=== PATIENT | male | born 1940 | race Caucasian/White ===

== ENCOUNTER 2021-05-08 11:56 | Emergency (ER) | payer MEDICARE, BC ==
[~2021-05-08] VITALS: Ht 162.6 cm; Wt 59.0 kg
--- NOTE | 2021-05-08 12:05 | PHYS DOC ---
Past Medical History Past Medical History: Diabetes-Type II, Heart Disease, [place], Renal Failure (esrd m/w/f) General Adult HPI: HPI: Patient is a 80-year-old male presenting via EMS for fall and neuro deficit. Majority of history is obtained from EMS crew. Last known normal was yesterday evening. Patient who is ESRD attended dialysis this morning at 0500 hrs. as scheduled and had a full session without issues. He went home afterwards and it is unclear what occurred. Patient had an unwitnessed fall and was down for an unknown amount of time, subsequently got up and got the strength to walk out and alert neighbors who subsequently called EMS. On arrival, patient was found to have a laceration that was actively bleeding on posterior occiput, he admits he is on a blood thinner but does not know what type. Per neighbors, he also was exhibiting right lower facial droop which is abnormal for patient. Vitals were normal, hemostatic gauze placed to posterior occiput and patient transported to our facility for evaluation Son later arrived to ER and helped provide history. He was said neighbor and EMS report. Reports he visually last saw patient last night. States he heard from his father that he got home from hemodialysis and states "I think he must of gone upstairs to take his shirt off for something and fell but I am not sure". States his father ambulated to his back door as they are neighbors where her son found patient bloody with obvious facial droop prompting him to call EMS. Son confirms history of type 2 diabetes and end-stage renal disease with hemodialysis Saturday. Confirms patient takes Plavix only for prior TN with unknown amount of cardiac stents, no other anticoagulants. He received x2 COVID-19 vaccinations Review of Systems: Review of Systems: Fourteen body systems of review of systems have been reviewed. See HPI for pertinent positives and negative responses, other maxwell all other systems are negative, non-pertinent or non-contributory Heart Score: C/O Chest Pain: No HEART Score for Chest Pain: HEART Score for Chest Pain Response (Comments) Value History Moderately Suspicious 1 ECG Normal 0 Age > 65 2 Risk Factors >3 Risk Factors or Hx CAD 2 Troponin < Normal Limit 0 Total 5 Risk Factors: Risk Factors: DM, Current or recent (<one month) smoker, HTN, HLP, family history of CAD, obesity. Risk Scores: Score 0 - 3: 2.5% MACE over next 6 weeks - Discharge Home Score 4 - 6: 20.3% MACE over next 6 weeks - Admit for Clinical Observation Score 7 - 10: 72.7% MACE over next 6 weeks - Early Invasive Strategies Physical Exam: PE: Constitutional: Pt is oriented to person, place, and time. Pt appears age-appropriate. Appears to be in no acute distress HEENT: Head: Normocephalic and atraumatic. TMs clear, no hemotympanum Conjunctivae and EOM are normal. Pupils are constricted but equal, round, and reactive to light. Oropharynx is clear and moist. 3.5 inch laceration to right posterior occiput with significant hematoma and blood clot overlying region with minimal ongoing blood loss OP clear, no blood, no malocclusion, dentition intact Nares clear, no nasal septal hematoma Midface stable Neck: C-spine midline nontender, no step-offs Cardiovascular: Normal rate, regular rhythm and normal heart sounds. Pulmonary/Chest: Effort normal with crackles in bilateral lower lobes. No respiratory distress. No wheezes. CTA bilaterally Abdominal: Soft. Bowel sounds are normal. Pt exhibits no distension. There is no tenderness. Unremarkable WILBERTO Musculoskeletal: No bony tenderness to extremities, no deformities, full ROM extremities Chest wall stable Pelvis stable and non-tender No vertebral TTP and spine without stepoffs Well-appearing right upper extremity fistula in place Neurological: Pt is alert and oriented to person, place, and time. Moving all extremities willfully, able to wiggle all fingers and toes Alert and oriented x 3 Motor and sensory function intact Right lower facial droop otherwise cranial nerves intact No saddle anesthesia Rectal tone intact Skin: Skin is warm and dry. No abrasions, no lacerations besides head lack noted above Psychiatric: Behavior is appropriate for situation Current Patient Data: Labs: Laboratory Tests Test 05/08/21 12:03 05/08/21 12:40 Glucose (Fingerstick) 100 mg/dL White Blood Count 6.6 x10^3/uL Red Blood Count 3.26 x10^6/uL Hemoglobin 10.6 g/dL Hematocrit 31.4 % Mean Corpuscular Volume 96 fL Mean Corpuscular Hemoglobin 33 pg Mean Corpuscular Hemoglobin Concent 34 g/dL Red Cell Distribution Width 14.6 % Platelet Count 209 x10^3/uL Neutrophils (%) (Auto) 71 % Lymphocytes (%) (Auto) 17 % Monocytes (%) (Auto) 8 % Eosinophils (%) (Auto) 3 % Basophils (%) (Auto) 1 % Neutrophils # (Auto) 4.7 x10^3/uL Lymphocytes # (Auto) 1.1 x10^3/uL Monocytes # (Auto) 0.5 x10^3/uL Eosinophils # (Auto) 0.2 x10^3/uL Basophils # (Auto) 0.0 x10^3/uL Prothrombin Time 12.3 SEC Prothromb Time International Ratio 0.9 Activated Partial Thromboplast Time 27 SEC Sodium Level 139 mmol/L Potassium Level 3.0 mmol/L Chloride Level 100 mmol/L Carbon Dioxide Level 34 mmol/L Anion Gap 5 Blood Urea Nitrogen 20 mg/dL Creatinine 2.6 mg/dL Estimated GFR (Cockcroft-Gault) 23.9 Glucose Level 129 mg/dL Calcium Level 8.6 mg/dL Creatine Kinase 46 U/L Troponin I Quantitative 0.044 ng/mL Salicylates Level < 2.8 mg/dL Salicylate Last Dose Date Unknown Salicylate Last Dose Time Unknown Acetaminophen Level < 2 mcg/ml Acetaminophen Last Dose Date Unknown Acetaminophen Last Dose Time Unknown Ethyl Alcohol Level < 10 mg/dL Current Medications Medications (Trade) Dose Ordered Sig/Makayla Route PRN Reason Start Time Stop Time Status Last Admin Dose Admin Lidocaine/ Epinephrine (LIDOCAINE 1%-EPI 1:100,000 Multi-Dose) 20 ml STK-MED ONCE .ROUTE 05/08/21 13:16 05/08/21 13:17 DC Vital Signs: Vital Signs Date Time Temp Pulse Resp B/P (MAP) Pulse Ox O2 Delivery O2 Flow Rate FiO2 05/08/21 12:00 20 Room Air Vital Signs Date Time Temp Pulse Resp B/P (MAP) Pulse Ox O2 Delivery O2 Flow Rate FiO2 05/08/21 12:00 20 Room Air EKG: EKG: EKG ordered and interpreted by myself at 1257 hrs. as sinus rhythm at 83 bpm, unremarkable intervals, left axis deviation, no acute ischemic findings, no STEMI Radiology/Procedures: Radiology/Procedures: XR CHEST 1V History: Reason: fall / Spl. Instructions: / History: Pain Comparison: None. Findings: Low lung volumes. Ill-defined bibasilar opacities. No pleural effusion. No pneumothorax. Normal heart size. Impression: 1. Low lung volumes with ill-defined bibasilar opacities, likely atelectasis. Electronically signed by: Sumit Garcia DO (05/08/2021 12:39 PM) [id number] /////////////////////////////////////////////// EXAM: XR PELVIS 1-2V 05/08/2021 12:28 PM CLINICAL INDICATION: Unwitnessed fall COMPARISON: None TECHNIQUE: AP view the pelvis FINDINGS: No acute fracture. Alignment is normal. There is moderate degenerative joint disease of the hips. Mild degenerative changes at the sacroiliac joints and lower lumbar spine. IMPRESSION: No acute osseous abnormality. Electronically signed by: Elaine Arcos MD (05/08/2021 12:48 PM) [id number] /////////////////////////////////////////// EXAMINATION: CT STROKE HEAD W/O, CT CERVICAL SPINE WO CLINICAL HISTORY: Reason: rt lower facial droop [phone] / Spl. Instructions: / History: TECHNIQUE: Serial axial images without IV contrast were obtained from the vertex to the foramen magnum. CT of the cervical spine without IV contrast. Spiral, high resolution axial images were obtained from the skull base to the cervicothoracic junction with sagittal and coronal planar reconstructions. CT Dose Reduction Employed: One or more of the following individualized dose reduction techniques were utilized for this examination: 1. Automated exposure control 2. Adjustment of the mA and/or kV according to patient size 3. Use of iterative reconstruction technique. COMPARISON: None FINDINGS: BRAIN: Heterogeneous increased density in the region of the left frontal lobe involving the basal ganglia and subinsular white matter which measures up to 3.8 x 2.7 cm. Associated areas of relative hypoattenuation superiorly and single small focus of hyperattenuation inferiorly. Moderate surrounding white matter edema within the left frontal and temporal lobes. Moderate mass effect on the left lateral ventricle and sulcal effacement but minimal to no associated midline shift. Patchy hypoattenuation in the right supratentorial white matter, nonspecific but likely related to chronic microvascular ischemia. Atherosclerotic calcification in the anterior and posterior circulation. Large subcutaneous contusion/hematoma along the right posterolateral scalp. No evidence of acute calvarial fracture. Paranasal sinuses and mastoid air cells clear. C-SPINE: Alignment: Normal anatomic alignment. Osseous Structures: No evidence of acute fracture or spondylolisthesis. Grade 1 C3-4 retrolisthesis, likely degenerative. Degenerative Changes: Moderate to severe multilevel degenerative disc disease, facet arthropathy, and neural foraminal narrowing. No evidence of high-grade osseous spinal stenosis. Cervical Soft Tissues: No prevertebral soft tissue swelling. Arterial atherosclerotic calcification. IMPRESSION: BRAIN: Parenchymal hemorrhage left frontal lobe with moderate surrounding white matter edema as described, possibly acute on subacute. Occult mass is not excluded, recommend clinical correlation and consider follow-up MRI as indicated. Large subcutaneous contusion/hematoma right posterolateral scalp. C-SPINE: No evidence of acute osseous abnormality involving the cervical spine. Moderate to severe multilevel degenerative disc disease and neural foraminal narrowing. Critical findings discussed with Milli Genao at 05/08/2021 12:23 PM. Electronically signed by: Ramy Gabriel DO (05/08/2021 12:55 PM) [facility] Course & Med Decision Making: Course & Med Decision Making Airway patent, breathing unlabored, IV access and vitals obtained that were grossly nonconcerning C-collar applied. NIH stroke scale 4 but outside any window for TPA. Trauma alert and code stroke activated given uncertainty of HPI Initial read and subsequent conversation with radiologist confirmed parenchymal hemorrhage with possible adjacent mass. Patient has no known history of cancer or other intracranial abnormalities. Son arrived at bedside after CT head imaging and assisted with further history. Confirms patient is on Plavix only. I discussed my concern for intracranial abnormality in fact that we do not have neurosurgery at our facility, I recommended emergent transfer I contacted [facility] and discussed case at length, patient transfer was accepted under the care of Dr. Ma. I updated patient and son on proposed plan of care that included hospital transfer and they were amenable. Labs returned with acceptable hemoglobin, external scalp wound observed and irrigated with minimal ongoing blood loss, I placed x4 simple interrupted sutu res to 3.5 inch right posterior occiput laceration with hemostasis achieved, pressure gauze dressing reapplied Only medications given during this ER visit included 500 mL IV NS bolus, rapid blood transfusion deferred in absence of any ongoing blood loss EMS personnel at bedside ready for hospital transfer. Patient mentation still AOx4 and hemodynamically stable. All questions and concerns addressed prior to ER departure to [facility] for direct admission Critical Care Time This patient required critical care. Due to the fact that the patient required a significant amount of one on one physician - patient contact time, ordering and review of studies, arranging urgent treatment with development of a management plan, evaluation of patients response to treatment with frequent reassessments, and discussions with other providers this patient required 45 minutes of critical care time. Critical care time was indicated due to the inherent instability and/or potential for instability in this patient. The critical care time that is allocated to this patient is above and beyond any time spent on any other billable procedures performed on this patient. Dragon Disclaimer: Dragon Disclaimer: This electronic medical record was generated, in whole or in part, using a voice recognition dictation system. Laceration/Wound Repair Laceration/Wound Repair : Wound Location: head Wound's Depth, Shape: superficial Wound Explored: clean Betadine Prep?: No Anesthesia: Lidocaine w/ Epi Wound Debrided: minimal Wound Repaired With: sutures Suture Size/Type: 3:0 Number of Sutures: 4 Layer Closure?: No Sterile Dressing Applied?: Yes Progress Indication: 3.5 inch laceration to right posterior occiput Verbal consent obtained from patient to suture right posterior occiput laceration. Site was irrigated and cleansed with copious amounts of wound solution. A total of 4 cc 1% lidocaine with epinephrine administered along the linear edges of the wound. Area was again cleansed and navigated without any obvious foreign body or other concerning abnormalities. A total of x4 simple sutures were inserted in simple interrupted fashion with great wound closure and hemostasis. Estimated blood loss <10ml, no complications observed nor reported Departure Departure Impression: Primary Impression: Cerebral parenchymal hemorrhage Additional Impressions: ESRD (end stage renal disease) on dialysis CAD (coronary artery disease) Insulin dependent type 2 diabetes mellitus Laceration of head Disposition: 02 [facility] ([facility]) Admitting Physician: GERBER (dr ma) Condition: GUARDED MILLI GENAO DO May 08, 2021 12:05
--- NOTE | 2021-05-08 12:42 | RAD ---
XR CHEST 1V History: Reason: fall / Spl. Instructions: / History: Pain Comparison: None. Findings: Low lung volumes. Ill-defined bibasilar opacities. No pleural effusion. No pneumothorax. Normal heart size. Impression: 1. Low lung volumes with ill-defined bibasilar opacities, likely atelectasis. Electronically signed by: Sumit Garcia DO (05/08/2021 12:39 PM) [id number]
--- NOTE | 2021-05-08 12:50 | RAD ---
EXAM: XR PELVIS 1-2V 05/08/2021 12:28 PM CLINICAL INDICATION: Unwitnessed fall COMPARISON: None TECHNIQUE: AP view the pelvis FINDINGS: No acute fracture. Alignment is normal. There is moderate degenerative joint disease of th e hips. Mild degenerative changes at the sacroiliac joints and lower lumbar spine. IMPRESSION: No acute osseous abnormality. Electronically signed by: Elaine Arcos MD (05/08/2021 12:48 PM) [id number]
[2021-05-08 12:57] LABS: BASO % 1 % (0-3); EOS # 0.2 x10^3/uL (0.0-0.7); EOS % 3 % (0-3); HEMATOCRIT 31.4 % (39.0-53.0); HEMOGLOBIN 10.6 g/dL (13.0-17.5); LYMPH # 1.1 x10^3/uL (1.0-4.8); LYMPH % 17 % (24-48); MEAN CORPUSCULAR HEMOGLOBIN 33 pg (25-35); MEAN CORPUSCULAR HGB CONC 34 g/dL (31-37); MEAN CORPUSCULAR VOLUME 96 fL (79-100); MONO # 0.5 x10^3/uL (0.0-1.1); MONO % 8 % (0-9); NEUT # 4.7 x10^3/uL (1.8-7.7); NEUT % 71 % (31-73); PLATELET COUNT 209 x10^3/uL (140-400); RED BLOOD COUNT 3.26 x10^6/uL (4.30-5.70); RED CELL DISTRIBUTION WIDTH 14.6 % (11.5-14.5); WHITE BLOOD COUNT 6.6 x10^3/uL (4.0-11.0)
--- NOTE | 2021-05-08 12:57 | RAD ---
EXAMINATION: CT STROKE HEAD W/O, CT CERVICAL SPINE WO CLINICAL HISTORY: Reason: rt lower facial droop [phone] / Spl. Instructions: / History: TECHNIQUE: Serial axial images without IV contrast were obtained from the vertex to the foramen magnum. CT of the cervical spine without IV contrast. Spiral, high resolution axial images were obtained from the skull base to the cervicothoracic junction with sagittal and coronal planar reconstructions. CT Dose Reduction Employed: One or more of the following individualized dose reduction techniques wer e utilized for this examination: 1. Automated exposure control 2. Adjustment of the mA and/or kV ac cording to patient size 3. Use of iterative reconstruction technique. COMPARISON: None FINDINGS: BRAIN: Heterogeneous increased density in the region of the left frontal lobe involving the basal ganglia an d subinsular white matter which measures up to 3.8 x 2.7 cm. Associated areas of relative hypoattenua tion superiorly and single small focus of hyperattenuation inferiorly. Moderate surrounding white mat ter edema within the left frontal and temporal lobes. Moderate mass effect on the left lateral ventri manjit and sulcal effacement but minimal to no associated midline shift. Patchy hypoattenuation in the r ight supratentorial white matter, nonspecific but likely related to chronic microvascular ischemia. A therosclerotic calcification in the anterior and posterior circulation. Large subcutaneous contusion/hematoma along the right posterolateral scalp. No evidence of acute calv arial fracture. Paranasal sinuses and mastoid air cells clear. C-SPINE: Alignment: Normal anatomic alignment. Osseous Structures: No evidence of acute fracture or spondylolisthesis. Grade 1 C3-4 retrolisthesis, likely degenerative. Degenerative Changes: Moderate to severe multilevel degenerative disc disease, facet arthropathy, and neural foraminal narrowing. No evidence of high-grade osseous spinal stenosis. Cervical Soft Tissues: No prevertebral soft tissue swelling. Arterial atherosclerotic calcification. IMPRESSION: BRAIN: Parenchymal hemorrhage left frontal lobe with moderate surrounding white matter edema as described, p ossibly acute on subacute. Occult mass is not excluded, recommend clinical correlation and consider f ollow-up MRI as indicated. Large subcutaneous contusion/hematoma right posterolateral scalp. C-SPINE: No evidence of acute osseous abnormality involving the cervical spine. Moderate to severe multilevel degenerative disc disease and neural foraminal narrowing. Critical findings discussed with Geraldo Suazo at 05/08/2021 12:23 PM. Electronically signed by: Ramy Gabriel DO (05/08/2021 12:55 PM) [facility]
[2021-05-08 13:04] LABS: CALCIUM 8.6 mg/dL (8.5-10.1); CREATININE 2.6 mg/dL (0.7-1.3); GFR 23.9
[2021-05-08 13:06] LABS: PROTHROMBIN TIME PATIENT 12.3 SEC (11.7-14.0)
[2021-05-08 13:09] LABS: ACETAMIN < 2 mcg/ml (10-30); ETHANOL < 10 mg/dL (0-10); SALIC < 2.8 mg/dL (2.8-20.0)
[2021-05-08] MEDS ORDERED: LIDOCAINE 1%/EPI 1:100,000 20 ML VIAL. ONE (13:16)
[2021-05-08 13:40] VITALS: BP 85/53
--- NOTE | 2021-05-08 13:57 | EKG ---
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
[2021-05-08] MEDS ORDERED: LIDOCAINE 1%/EPI 1:100,000 20 ML VIAL. INJ ONE (14:00)
== END 2021-05-08 13:42 | disposition short-term general hospital (02) ==
LOC: ER 11:56
DX: S01.01XA Laceration without foreign body of scalp, initial encounter (principal); E11.22 Type 2 diabetes mellitus with diabetic chronic kidney disease; I61.9 Nontraumatic intracerebral hemorrhage, unspecified; N18.6 End stage renal disease; Z99.2 Dependence on renal dialysis; I25.10 Atherosclerotic heart disease of native coronary artery without angina pectoris; I25.2 Old myocardial infarction; Z86.79 Personal history of other diseases of the circulatory system; W18.39XA Other fall on same level, initial encounter; Y93.89 Activity, other specified; Y92.89 Other specified places as the place of occurrence of the external cause; Y99.8 Other external cause status
CPT/HCPCS: 12004; 36415; 70450; 71045; 72125; 72170; 80048; 80329; 82550; 82962; 84484; 85025; 85610; 85730; 86850; 86900; 86901; 93005; 99291; G0390; G0480; J3490